=== PATIENT | female | born 1940 | race Caucasian/White ===

== ENCOUNTER 2017-12-04 06:19 | Day surgery (SDC) | payer OTHER ==
[~2017-12-04] VITALS: Ht 157.5 cm; Wt 75.0 kg
[~2017-12-04 06:19] MED LIST: EXTRA PAIN REL1 EACH PO; NEXIUM20 MG PO; WELCHOL625 MG PO
[2017-12-04 07:00] VITALS: BP 166/76
[2017-12-04] MEDS ORDERED: ASPIRIN325 MG PO (07:16)
[2017-12-04 15:25] VITALS: BP 162/85
[2017-12-04 18:20] LABS: HEMOGLOBIN 14.9 G/DL (11.9-15.5); MCH 26.9 PG (29.0-34.0); MCHC 32.4 G/DL (30.0-36.0); RBC DIS.WIDTH-CV 13.6 % (11.8-14.6); RBC DIS.WIDTH-SD 40.7 % (39-53); RED BLOOD COUNT 5.54 M/uL (3.80-5.20); WHITE BLOOD COUNT 18.2 K/uL (4.1-10.2)
[2017-12-04 18:45] LABS: CHLORIDE 99 MEQ/L (99-109); CREATININE 0.6 MG/DL (0.6-1.3); GFR ESTIMATE (CALCULATED) > 59 mL/min/; GLUCOSE 219 mg/dL (70-99); POTASSIUM 3.7 MEQ/L (3.7-5.4); SODIUM 133 MEQ/L (136-147); UREA NITROGEN (BUN) 10 mg/dL (9-23)
[2017-12-04 19:44] VITALS: BP 177/84
[2017-12-04 19:55] LABS: PLAT.SUFFICIENCY ADEQUATE; PLATELET COUNT 273 K/uL (156-360)
[2017-12-04 23:43] VITALS: BP 178/79
[2017-12-05 03:36] VITALS: BP 169/75
[2017-12-05 06:38] LABS: HEMATOCRIT 46.2 % (36.0-46.0); HEMOGLOBIN 14.6 G/DL (11.9-15.5); MCH 26.1 PG (29.0-34.0); MCHC 31.6 G/DL (30.0-36.0); MCV 82.5 FL (83-99); RBC DIS.WIDTH-CV 13.5 % (11.8-14.6); RBC DIS.WIDTH-SD 40.9 % (39-53); WHITE BLOOD COUNT 15.9 K/uL (4.1-10.2)
[2017-12-05 07:08] LABS: CHLORIDE 103 MEQ/L (99-109); CREATININE 0.7 MG/DL (0.6-1.3); GFR ESTIMATE (CALCULATED) > 59 mL/min/; GLUCOSE 145 mg/dL (70-99); POTASSIUM 4.1 MEQ/L (3.7-5.4); SODIUM 139 MEQ/L (136-147); UREA NITROGEN (BUN) 9 mg/dL (9-23)
[2017-12-05 07:18] LABS: PLAT.SUFFICIENCY INCREASED
[2017-12-05 07:22] LABS: PLATELET COUNT 377 K/uL (156-360)
[2017-12-05 07:45] VITALS: BP 156/72
== END 2017-12-05 11:35 | disposition home or self-care (01) ==
LOC: SDC 06:19 → 2SOUTH 10:32 → 2EAST 10:32 → ENRESERV 10:56 → SDC 14:43 → 2EAST 15:10
PROVIDERS: Obstetrics & Gynecology Gynecologic Oncology
PROC: 0UT97ZZ Resection of Uterus, Via Natural or Artificial Opening (ICD-10-PCS; principal; 2017-12-04)
DX: D25.9 Leiomyoma of uterus, unspecified (principal); N84.0 Polyp of corpus uteri; N81.4 Uterovaginal prolapse, unspecified; N72 Inflammatory disease of cervix uteri; E11.9 Type 2 diabetes mellitus without complications; K21.9 Gastro-esophageal reflux disease without esophagitis; E78.5 Hyperlipidemia, unspecified; M81.0 Age-related osteoporosis without current pathological fracture; E55.9 Vitamin D deficiency, unspecified; Z79.82 Long term (current) use of aspirin
CPT/HCPCS: 80048; 85027; 88307; G0378; J0131; J0171; J0360; J0690; J1100; J1170; J1885; J2250; J2405; J2710; J3010

== ENCOUNTER 2018-03-09 18:14 | Emergency (ER) | payer OTHER ==
[~2018-03-09] VITALS: Ht 157.5 cm; Wt 74.5 kg
[~2018-03-09 18:14] MED LIST changes: +ASPIRIN325 MG PO
[2018-03-09 21:12] LABS: HEMATOCRIT 43.7 % (36.0-46.0); HEMOGLOBIN 14.4 G/DL (11.9-15.5); MCH 27.9 PG (29.0-34.0); MCV 84.7 FL (83-99); RBC DIS.WIDTH-CV 13.6 % (11.8-14.6); RED BLOOD COUNT 5.16 M/uL (3.80-5.20); WHITE BLOOD COUNT 9.8 K/uL (4.1-10.2)
[2018-03-09 21:24] LABS: ALBUMIN 3.9 g/dL (3.2-4.8)
[2018-03-09 21:25] LABS: CHLORIDE 108 mEq/L (99-109); POTASSIUM 4.2 mEq/L (3.7-5.4); SODIUM 143 mEq/L (136-147)
[2018-03-09 21:27] LABS: GLUCOSE 111 mg/dL (70-99); TOTAL PROTEIN 7.4 g/dL (6.4-8.3)
[2018-03-09 21:29] LABS: TOTAL BILIRUBIN 0.4 mg/dL (0.0-1.0)
[2018-03-09 21:30] LABS: ALKALINE PHOSPHATASE 159 IU/L (3-129)
[2018-03-09 21:31] LABS: CREATININE 0.8 mg/dL (0.6-1.3); GFR ESTIMATE (CALCULATED) > 59 mL/min/
[2018-03-09 21:32] LABS: AST (GOT) 82 IU/L (2-34); UREA NITROGEN (BUN) 16 mg/dL (9-23)
[2018-03-09 21:33] LABS: ALT (GPT) 92 IU/L (3-49)
[2018-03-09 22:03] LABS: PLAT.SUFFICIENCY ADEQUATE; PLATELET COUNT 256 K/uL (156-360)
[2018-03-09 22:18] LABS: LIPASE 32 U/L (1.0-51.0)
[2018-03-09] MEDS ORDERED: MICROZIDE12.5 M1 PO (23:05)
[2018-03-09 23:07] VITALS: BP 202/104
== END 2018-03-09 23:09 | disposition home or self-care (01) ==
LOC: EME 18:14
PROVIDERS: Physician Assistant
DX: I10 Essential (primary) hypertension (principal); R51 Headache; E11.9 Type 2 diabetes mellitus without complications; E78.5 Hyperlipidemia, unspecified; Z79.82 Long term (current) use of aspirin; Z90.710 Acquired absence of both cervix and uterus; Z88.8 Allergy status to other drugs, medicaments and biological substances
CPT/HCPCS: 70450; 80053; 83690; 85027; 85610; 93005; 99281; 99284